=== PATIENT | female | born 1980 | race Caucasian/White ===

== ENCOUNTER 2021-07-04 19:28 | Emergency (ER) | payer MEDICAID ==
[~2021-07-04] VITALS: Ht 167.6 cm; Wt 54.4 kg
--- NOTE | 2021-07-04 19:32 | NUR ---
Note lianone in EDM - 07/04/21 at 1957 by RICHA PT BIBRA C/O WEAKNESS AND DIZZINESS X1WEEK. PT AAOX4 BREATHING EVENLY AND UNLABORED. PT STATES THAT SHE HAS BEEN EATING SOUPS AND VEGETABLES BUT FEELING NAUSEA AFTER MEALS. PT HAS LOSS WEIGHT OVER 6MONTHS, WAS 210LBS, NOW 120LBS. PT ATTACHED TO MONITOR AND POX. PT GIVEN BLANKET AND CALLLIGHT WTIHIN REACH.
--- NOTE | 2021-07-04 19:32 | NUR ---
PT BIBRA C/O WEAKNESS AND DIZZINESS X1WEEK. PT AAOX3 BREATHING EVENLY AND UNLABORED. PT STATES THAT SHE HAS BEEN EATING SOUPS AND VEGETABLES BUT FEELING NAUSEA AFTER MEALS. PT HAS LOSS WEIGHT OVER 6MONTHS, WAS 210LBS, NOW 120LBS. PT ATTACHED TO MONITOR AND POX. PT GIVEN BLANKET AND CALLLIGHT WTIHIN REACH.
--- NOTE | 2021-07-04 19:57 | NUR ---
BLOOD SENT TO LAB
[2021-07-04] MEDS: IV NS 0.9% 1,000 ML BAG IV ONE ×2 (20:00→20:30)
[2021-07-04 20:04] LABS: BASOPHILS # (AUTO) 0.1 K/uL (0.0-0.2); BASOPHILS % (AUTO) 0.5 % (0.0-2.0); EOSINOPHILS % (AUTO) 0.2 % (0.0-6.0); HEMATOCRIT 36 % (33-45); HEMOGLOBIN 12.8 g/dL (11.5-14.8); LYMPHOCYTES # (AUTO) 1.3 K/uL (0.8-4.8); LYMPHOCYTES % (AUTO) 12.8 % (20.0-44.0); MEAN CORPUSCULAR HGB CONC 36 g/dl (31.0-36.0); MEAN CORPUSCULAR VOLUME 110 fL (82-100); MONOCYTES % (AUTO) 10.3 % (2.0-12.0); NEUTROPHILS # (AUTO) 7.5 K/uL (1.8-8.9); NEUTROPHILS % (AUTO) 76.2 % (43.0-81.0); PLATELET COUNT (AUTO) 279 K/uL (150-450); RED BLOOD CELL COUNT(AUTO) 3.26 MIL/uL (4.0-5.2); WHITE BLOOD COUNT (AUTO) 9.8 K/uL (4.3-11.0)
[2021-07-04 20:17] LABS: CALCIUM, SERUM 8.7 mg/dL (8.5-10.1); CARBON DIOXIDE 22 mmol/L (21-32); CHLORIDE 85 mmol/L (98-107); CREATININE 0.7 mg/dL (0.6-1.3); GLUCOSE 100 mg/dL (74-106); POTASSIUM 2.9 mmol/L (3.5-5.1); SODIUM SERUM 123 mmol/L (136-145); UREA NITROGEN, BLOOD 7 mg/dL (7-18)
--- NOTE | 2021-07-04 20:20 | NUR ---
AB () NUMBER: [phone]
[2021-07-04 20:27] LABS: ALCOHOL, BLOOD < 3 mg/dL (0-0)
[2021-07-04] MEDS: ONDANSETRON HCL/PF 4 MG/2 ML VIAL IVP ONE (20:30)
[2021-07-04] MEDS ORDERED: ONDANSETRON HCL/PF 4 MG/2 ML VIAL ONE (20:33)
[2021-07-04 20:46] LABS: THYROID STIMULATING HORMONE 2.472 uIU/mL (0.358-3.74)
[2021-07-04] MEDS ORDERED: POTASSIUM CHLORIDE 20 MEQ TAB.PRT.SR PO ONE (20:57)
[2021-07-04] MEDS: POTASSIUM CHLORIDE 20 MEQ TAB.PRT.SR PO ONE (21:00)
--- NOTE | 2021-07-04 21:22 | NUR ---
[place] shrestha in [facility] - 07/04/21 at 2151 by RICHA PER AB MARTINEZ PT HAS NOT BEEN EATING FOR THE PAST WEEK AND HAS BEEN HAVING HALLUCINATIONS.
[2021-07-04] MEDS ORDERED: POTA-58 PO (21:39)
--- NOTE | 2021-07-04 22:04 | NUR ---
CALLED TO [employer]TE[employer] PT. ETA 30MIN
--- NOTE | 2021-07-04 23:45 | NUR ---
Patient discharged to home in stable condition. Written and verbal after care instructions given. Patient verbalizes understanding of instruction. IV removed. Catheter intact and site benign. Pressure and 4x4 applied to site. No bleeding noted. Pt wheeled out to waiting room with awaiting uber
[2021-07-04 23:51] VITALS: BP 134/90
== END 2021-07-04 23:45 | disposition home or self-care (01) ==
LOC: ER 19:40
DX: E87.6 Hypokalemia (principal); R00.0 Tachycardia, unspecified
CPT/HCPCS: 36415; 71045; 80048; 80320; 84443; 84484; 85007; 85025; 93005 ×2; 96361; 96374; 99285; J2405; J7030 ×2; G0480